=== PATIENT | female | born 1960 | race African-American/Black ===

== ENCOUNTER 2020-01-01 09:14 | Inpatient (IN) | payer OTHER ==
[~2020-01-01] VITALS: Ht 165.1 cm; Wt 103.9 kg
[2020-01-01] MEDS ORDERED: diphenhdrAMINE HCL 50 MG/1 ML VL ONE (09:25)
[2020-01-01] MEDS ORDERED: LORazepam 2MG/ML-1ML VIAL ONE (09:25)
[2020-01-01] MEDS ORDERED: SODIUM CHLORIDE 0.9% 1,000 ML IV ONE ×2 (09:25)
[2020-01-01] MEDS ORDERED: LORazepam 2MG/ML-1ML VIAL IV ONE ×2 (09:30→11:00)
[2020-01-01] MEDS ORDERED: diphenhdrAMINE HCL 50 MG/1 ML VL IV ONE (09:30)
[2020-01-01 10:10] LABS: Basophils # (auto) 0.1 10 ^3/uL (0-0.2); Basophils % (auto) 0.4 % (0.0-2.0); Eosinophils # (auto) 0.1 10 ^3/uL (0-0.8); Eosinophils % (auto) 1.1 % (0.0-7.0); Hematocrit 40.6 % (36.0-46.0); Lymphocytes # (auto) 3.8 10 ^3/uL (0.4-5.4); Lymphocytes % (auto) 29.3 % (10.0-50.0); Mean Corpuscular Hemoglobin 27.1 pg (28.0-32.0); Mean Corpuscular Volume 84.9 fL (80.0-100.0); Monocytes # (auto) 0.9 10 ^3/uL (0-1.3); Monocytes % (auto) 7.1 % (0.0-12.0); Neutrophils # (auto) 8.1 10 ^3/uL (1.6-8.6); Neutrophils % (auto) 62.1 % (37.0-80.0); Nucleated Red Blood Cells % 0.2 %; Platelet Count (auto) 305 10^3/uL (140-450); Red Blood Cells 4.78 10^6/uL (4.0-5.20); Red Cell Distribution Width 13.8 % (11.8-14.3)
[2020-01-01 10:40] LABS: Chloride 105 mmol/L (98-107); Potassium 3.4 mmol/L (3.5-5.1); Sodium 137 mmol/L (136-145)
[2020-01-01 10:50] LABS: Alanine Aminotransferase 33 U/L (13-56); Albumin 3.8 g/dL (3.4-5.0); Alkaline Phosphatase 96 U/L (45-117); Anion Gap 11 (5-15); Aspartate Aminotransferase 17 U/L (15-37); BUN/Creatinine Ratio 11.1; Bilirubin, Total 0.7 mg/dL (0.2-1.0); Blood Urea Nitrogen 12 mg/dL (7-18); Calcium 8.4 mg/dL (8.5-10.1); Carbon Dioxide 21 mmol/L (21-32); GFR African American 67 mL/min; GFR Non-African American 56 mL/min; Glucose 320 mg/dL (74-106); Total Protein 7.2 g/dL (6.4-8.2)
[2020-01-01 11:08] LABS: Urine Bacteria FEW /hpf (None Seen); Urine Blood 1+ /uL (Negative); Urine Specific Gravity 1.016 (1.001-1.035); Urine WBC 27 /hpf (0 - 5)
[2020-01-01] MEDS ORDERED: POTASSIUM CHL 20MEQ/100ML 100 ML IV ONE (12:45)
[2020-01-01] MEDS ORDERED: POTASSIUM EFFERVESENT TAB 25 MEQ PO ONE (13:15)
[2020-01-01] MEDS ORDERED: MORPHINE SULF INJ 2 MG/ML SYRINGE 1ML IV PRN ×2 (13:15)
[2020-01-01] MEDS ORDERED: LORazepam 2MG/ML-1ML VIAL IV PRN ×2 (13:15→21:15)
[2020-01-01] MEDS ORDERED: traMADol HCL 50 MG TAB PO PRN (13:15)
[2020-01-01] MEDS ORDERED: DEXTROSE (50%) 50ML SYRG IV PRN (13:15)
[2020-01-01] MEDS ORDERED: LACTULOSE 20Gm/30ML SOLN PO PRN (13:15)
[2020-01-01] MEDS ORDERED: TEMAZEPAM 15 MG CAP PO PRN (13:15)
[2020-01-01] MEDS ORDERED: PROMETHAZINE HCL 25 MG/ML 1ML IV PRN (13:15)
[2020-01-01] MEDS ORDERED: cefTRIAXone 1GM/50ML D5W 50 ML IV ONE (13:15)
[2020-01-01] MEDS ORDERED: ACETAMINOPHEN 500 MG TAB PO PRN (13:15)
[2020-01-01] MEDS ORDERED: LABETALOL HCL 5 MG/ML ML 20ML VIAL IV PRN (13:15)
[2020-01-01] MEDS ORDERED: NITROGLYCERIN 0.4 MG SL TAB SL PRN (13:15)
[2020-01-01 14:43] LABS: Alcohol, Urine < 3.0 mg/dL (0-10); Amphetamine Screen, Urine NEGATIVE (NEGATIVE); Barbiturate Scree,Urine NEGATIVE (NEGATIVE); Benzodiazephine Screen, Urine POSITIVE (NEGATIVE); Cannabinoid Screen, Urine NEGATIVE (NEGATIVE); Cocaine Screen, Urine NEGATIVE (NEGATIVE); Opiate Scree,Urine NEGATIVE (NEGATIVE); Phencyclidine Screen, Urine NEGATIVE (NEGATIVE)
[2020-01-01] MEDS: ACCU-CHEK COMFORT CURVE STRIP VI SCH ×2 (16:00→22:11)
[2020-01-01 17:00] VITALS: BP 149/97
[2020-01-01] MEDS: InsuLIN REG 1unit/0.01ml Soln (100units/ml) SC SCH ×2 (18:02→22:11)
[2020-01-01] MEDS ORDERED: HYDROcodone-ACET 5/325MG TAB PO PRN (21:15)
[2020-01-01 22:00] VITALS: BP 148/83
[2020-01-01] MEDS: ATORVASTATIN 20 MG TAB PO SCH (22:12)
[2020-01-01] MEDS: CARVEDILOL 3.125 MG TAB PO SCH (22:12)
[2020-01-01] MEDS: FAMOTIDINE 20 MG TAB PO SCH (22:12)
[2020-01-02] MEDS: InsuLIN REG 1unit/0.01ml Soln (100units/ml) SC SCH ×6 (00:01→22:36)
[2020-01-02] MEDS: ACCU-CHEK COMFORT CURVE STRIP VI SCH ×6 (00:02→21:46)
[2020-01-02] MEDS ORDERED: LISI-646 PO (03:43)
[2020-01-02] MEDS ORDERED: METF-371 PO (03:43)
[2020-01-02] MEDS ORDERED: ATOR20TA50 PO (03:47)
[2020-01-02] MEDS ORDERED: PIOG1TAB37 OR (03:51)
[2020-01-02] MEDS ORDERED: CETI10CA PO (03:52)
[2020-01-02 05:20] VITALS: BP 144/85
[2020-01-02 08:00] VITALS: BP 129/77
[2020-01-02 09:00] VITALS: BP 129/77
[2020-01-02] MEDS: POTASSIUM CHL 20 Meq TABLET PO SCH (10:07)
[2020-01-02] MEDS: ENOXAPARIN SOD 40 MG/0.4 ML SYRINGE SC SCH (10:07)
[2020-01-02] MEDS: FAMOTIDINE 20 MG TAB PO SCH ×2 (10:07→22:35)
[2020-01-02] MEDS: FUROSEMIDE 40 MG/4 ML VIAL IV SCH (10:07)
[2020-01-02] MEDS: cefTRIAXone 1GM/50ML D5W 50 ML IV SCH (10:08)
[2020-01-02] MEDS: CARVEDILOL 3.125 MG TAB PO SCH ×2 (10:08→22:35)
[2020-01-02] MEDS: ENALAPRIL MALEATE 2.5 MG TAB PO SCH (10:08)
[2020-01-02] MEDS: ASPirin 81 mg TAB PO SCH (10:08)
[2020-01-02 13:00] VITALS: BP 130/83
[2020-01-02 16:52] VITALS: BP 121/81
[2020-01-02 22:00] VITALS: BP 142/80
[2020-01-02] MEDS: ATORVASTATIN 20 MG TAB PO SCH (22:35)
[2020-01-03] MEDS: InsuLIN REG 1unit/0.01ml Soln (100units/ml) SC SCH ×7 (01:01→23:58)
[2020-01-03] MEDS: ACCU-CHEK COMFORT CURVE STRIP VI SCH ×7 (01:02→23:58)
[2020-01-03 05:00] VITALS: BP 130/72
[2020-01-03 08:48] VITALS: BP 125/72
[2020-01-03] MEDS: FUROSEMIDE 40 MG/4 ML VIAL IV SCH (10:00)
[2020-01-03] MEDS: cefTRIAXone 1GM/50ML D5W 50 ML IV SCH (10:13)
[2020-01-03] MEDS: ASPirin 81 mg TAB PO SCH (10:14)
[2020-01-03] MEDS: CARVEDILOL 3.125 MG TAB PO SCH ×2 (10:14→21:38)
[2020-01-03] MEDS: FAMOTIDINE 20 MG TAB PO SCH ×2 (10:15→21:37)
[2020-01-03] MEDS: ENALAPRIL MALEATE 2.5 MG TAB PO SCH (10:15)
[2020-01-03] MEDS: ENOXAPARIN SOD 40 MG/0.4 ML SYRINGE SC SCH (10:15)
[2020-01-03] MEDS: POTASSIUM CHL 20 Meq TABLET PO SCH (10:16)
[2020-01-03 12:49] VITALS: BP 148/85
[2020-01-03 16:47] VITALS: BP 131/73
[2020-01-03] MEDS: ATORVASTATIN 20 MG TAB PO SCH (21:38)
[2020-01-03 23:32] VITALS: BP 141/84
[2020-01-04] MEDS: ACCU-CHEK COMFORT CURVE STRIP VI SCH ×5 (04:00→20:00)
[2020-01-04] MEDS: InsuLIN REG 1unit/0.01ml Soln (100units/ml) SC SCH ×6 (04:00→23:58)
[2020-01-04 05:36] VITALS: BP 131/75
[2020-01-04 08:43] VITALS: BP 148/88
[2020-01-04] MEDS: cefTRIAXone 1GM/50ML D5W 50 ML IV SCH (09:16)
[2020-01-04] MEDS: FUROSEMIDE 40 MG/4 ML VIAL IV SCH (09:17)
[2020-01-04] MEDS: ASPirin 81 mg TAB PO SCH (09:17)
[2020-01-04] MEDS: CARVEDILOL 3.125 MG TAB PO SCH ×2 (09:17→22:07)
[2020-01-04] MEDS: FAMOTIDINE 20 MG TAB PO SCH ×2 (09:18→22:06)
[2020-01-04] MEDS: POTASSIUM CHL 20 Meq TABLET PO SCH (09:18)
[2020-01-04] MEDS: ENALAPRIL MALEATE 2.5 MG TAB PO SCH (09:19)
[2020-01-04] MEDS: ENOXAPARIN SOD 40 MG/0.4 ML SYRINGE SC SCH (09:19)
[2020-01-04 12:51] VITALS: BP 129/87
[2020-01-04 16:34] VITALS: BP 151/98
[2020-01-04 22:00] VITALS: BP 144/83
[2020-01-04] MEDS: ATORVASTATIN 20 MG TAB PO SCH (22:07)
[2020-01-05] MEDS: ACCU-CHEK COMFORT CURVE STRIP VI SCH ×5 (04:00→16:00)
[2020-01-05] MEDS: InsuLIN REG 1unit/0.01ml Soln (100units/ml) SC SCH ×4 (04:00→16:00)
[2020-01-05 05:00] VITALS: BP 129/77
[2020-01-05] MEDS: cefTRIAXone 1GM/50ML D5W 50 ML IV SCH (08:55)
[2020-01-05] MEDS: FUROSEMIDE 40 MG/4 ML VIAL IV SCH (08:55)
[2020-01-05] MEDS: CARVEDILOL 3.125 MG TAB PO SCH (08:56)
[2020-01-05] MEDS: POTASSIUM CHL 20 Meq TABLET PO SCH (08:56)
[2020-01-05] MEDS: ASPirin 81 mg TAB PO SCH (08:56)
[2020-01-05] MEDS: ENALAPRIL MALEATE 2.5 MG TAB PO SCH (08:56)
[2020-01-05] MEDS: ENOXAPARIN SOD 40 MG/0.4 ML SYRINGE SC SCH (08:57)
[2020-01-05] MEDS: FAMOTIDINE 20 MG TAB PO SCH (08:57)
[2020-01-05 09:00] VITALS: BP 132/75
[2020-01-05 13:00] VITALS: BP 124/81
== END 2020-01-05 16:57 | disposition home or self-care (01) | DRG 872 ==
LOC: ER 09:14 → EDBD 09:14 → TELE-WESTW 09:15 → ER 15:23
PROVIDERS: ADMIT Internal Medicine; ATTEND Family Medicine
DX: A41.9 Sepsis, unspecified organism (principal); N39.0 Urinary tract infection, site not specified; J90 Pleural effusion, not elsewhere classified; G40.401 Other generalized epilepsy and epileptic syndromes, not intractable, with status epilepticus; E87.6 Hypokalemia; E86.0 Dehydration; E66.01 Morbid (severe) obesity due to excess calories; E11.65 Type 2 diabetes mellitus with hyperglycemia; I11.0 Hypertensive heart disease with heart failure; I50.9 Heart failure, unspecified; Z68.38 Body mass index [BMI] 38.0-38.9, adult; E78.00 Pure hypercholesterolemia, unspecified; E78.5 Hyperlipidemia, unspecified; R79.89 Other specified abnormal findings of blood chemistry; Z82.49 Family history of ischemic heart disease and other diseases of the circulatory system; Z83.3 Family history of diabetes mellitus; Z88.0 Allergy status to penicillin; J34.1 Cyst and mucocele of nose and nasal sinus
CPT/HCPCS: 36415; 70450; 70551; 71045; 80053; 80307; 81001; 82550; 82962; 83036; 83880; 84484; 85025; 85379; 87040; 87086; 93005; 93306; 93886; 93970; 95819; G0378; J0696; J1815; J3480; J7060

== ENCOUNTER 2020-11-15 06:19 | Day surgery (SDC) | payer OTHER ==
[2020-11-10 14:36] LABS: Basophils # (auto) 0 10 ^3/uL (0-0.2); Basophils % (auto) 0.3 % (0.0-2.0); Eosinophils # (auto) 0.1 10 ^3/uL (0-0.8); Eosinophils % (auto) 1.7 % (0.0-7.0); Hematocrit 37.5 % (36.0-46.0); Hemoglobin 12.6 g/dL (12.2-16.2); Lymphocytes # (auto) 1.8 10 ^3/uL (0.4-5.4); Mean Corpuscular Hemoglobin 28.2 pg (28.0-32.0); Mean Corpuscular Hgb Conc. 33.6 g/dL (32.0-36.0); Mean Corpuscular Volume 83.9 fL (80.0-100.0); Monocytes # (auto) 0.5 10 ^3/uL (0-1.3); Monocytes % (auto) 7.9 % (0.0-12.0); Neutrophils % (auto) 62.1 % (37.0-80.0); Nucleated Red Blood Cells % 0.1 %; Red Blood Cells 4.47 10^6/uL (4.0-5.20); Red Cell Distribution Width 13.9 % (11.8-14.3); White Blood Cell 6.4 10^3/uL (4.4-10.8)
[2020-11-10 14:39] LABS: Albumin 3.5 g/dL (3.4-5.0); Calcium 8.9 mg/dL (8.5-10.1); Potassium 3.8 mmol/L (3.5-5.1)
[2020-11-10 14:42] LABS: BUN/Creatinine Ratio 21.8; Bilirubin, Total 0.7 mg/dL (0.2-1.0); Total Protein 7.3 g/dL (6.4-8.2)
[2020-11-10 14:49] LABS: Urine Bacteria NONE SEEN /hpf (None Seen); Urine Blood 2+ /uL (Negative); Urine Budding Yeast OCCASIONAL /hpf (None Seen); Urine Mucus FEW (None Seen); Urine Specific Gravity 1.022 (1.001-1.035); Urine WBC 211 /hpf (0 - 5)
[~2020-11-15] VITALS: Ht 170.2 cm; Wt 86.2 kg
[~2020-11-15 06:19] MED LIST: ATOR20TA50 PO; CETI10CA PO; LISI20TA28 PO; METF-371 PO; MONT5CHW23 PO; SITA50TA PO
[2020-11-15] MEDS ORDERED: CLINDAMYCIN 600MG IV 50 ML IV ONE (07:00)
[2020-11-15] MEDS ORDERED: ROPIVACAINE 0.5% (5MG/ML) 20ML AMPULE IJ ONE (07:12)
[2020-11-15] MEDS ORDERED: fentaNYL CITRATE 100 MCG/2 ML VL ONE ×2 (07:26→07:28)
[2020-11-15] MEDS ORDERED: MIDAZOLAM HCL 2MG/2ML 2ml VIAL (1mg/ml) ONE (07:27)
[2020-11-15] MEDS ORDERED: PROPOFOL 10 MG/ML 20 ML IV ONE (07:29)
[2020-11-15] MEDS ORDERED: ONDANSETRON HCL 4 MG/2 ML VIAL ONE (07:29)
[2020-11-15] MEDS ORDERED: LIDOCAINE 2% (LOCAL ANESTH.) PF 5ml SDV ONE (07:29)
[2020-11-15] MEDS ORDERED: NEOMYCIN-BACITRACIN-POLYM 15GM TOP OINT TOP ONE (07:49)
[2020-11-15] MEDS ORDERED: ONDANSETRON HCL 4 MG/2 ML VIAL IV PRN (08:15)
[2020-11-15] MEDS ORDERED: HYDROmorphone HCL 2 MG/ML VL ONE (08:53)
[2020-11-15] MEDS: HYDROmorphone HCL 2 MG/ML VL IV PRN ×2 (08:54→09:10)
[2020-11-15 09:05] VITALS: BP 144/90
== END 2020-11-15 09:35 | disposition home or self-care (01) ==
LOC: SUR 06:19
PROVIDERS: ATTEND Podiatrist Foot & Ankle Surgery
DX: M72.2 Plantar fascial fibromatosis (principal); I10 Essential (primary) hypertension; E11.9 Type 2 diabetes mellitus without complications; Z98.51 Tubal ligation status; Z20.822 Contact with and (suspected) exposure to COVID-19; Z98.890 Other specified postprocedural states; Z79.899 Other long term (current) drug therapy
CPT/HCPCS: 28062; 36415; 80053; 81001; 82962; 85025; J1170; J2001; J2250; J2405; J2704; J2795; J3010; J3490; U0003

== ENCOUNTER 2020-11-22 08:21 | Emergency (ER) | payer OTHER ==
[~2020-11-22] VITALS: Ht 165.1 cm; Wt 77.1 kg
[2020-11-22] MEDS ORDERED: LORazepam 2MG/ML-1ML VIAL ONE (08:50)
[2020-11-22] MEDS ORDERED: LORazepam 2MG/ML-1ML VIAL IV ONE (09:00)
[2020-11-22 09:40] LABS: Basophils # (auto) 0.1 10 ^3/uL (0-0.2); Basophils % (auto) 0.9 % (0.0-2.0); Eosinophils # (auto) 0 10 ^3/uL (0-0.8); Eosinophils % (auto) 0.2 % (0.0-7.0); Hematocrit 40.9 % (36.0-46.0); Hemoglobin 13.1 g/dL (12.2-16.2); Lymphocytes # (auto) 1.5 10 ^3/uL (0.4-5.4); Lymphocytes % (auto) 11.9 % (10.0-50.0); Mean Corpuscular Hemoglobin 27.3 pg (28.0-32.0); Mean Corpuscular Volume 85.5 fL (80.0-100.0); Monocytes # (auto) 0.5 10 ^3/uL (0-1.3); Monocytes % (auto) 3.8 % (0.0-12.0); Neutrophils # (auto) 10.7 10 ^3/uL (1.6-8.6); Neutrophils % (auto) 83.2 % (37.0-80.0); Nucleated Red Blood Cells % 0.1 %; Red Blood Cells 4.79 10^6/uL (4.0-5.20); Red Cell Distribution Width 13.5 % (11.8-14.3); White Blood Cell 12.8 10^3/uL (4.4-10.8)
[2020-11-22 09:57] LABS: Albumin 3.5 g/dL (3.4-5.0); Anion Gap 14 (5-15); Blood Urea Nitrogen 10 mg/dL (7-18); Calcium 8.4 mg/dL (8.5-10.1); Carbon Dioxide 17 mmol/L (21-32); Chloride 108 mmol/L (98-107); Glucose 269 mg/dL (74-106); Magnesium 1.9 mg/dL (1.6-2.6); Potassium 3.4 mmol/L (3.5-5.1); Sodium 139 mmol/L (136-145)
[2020-11-22 10:04] LABS: Alanine Aminotransferase 35 U/L (13-56); Alkaline Phosphatase 74 U/L (45-117); Aspartate Aminotransferase 18 U/L (15-37); BUN/Creatinine Ratio 8.4; Bilirubin, Total 0.8 mg/dL (0.2-1.0); GFR African American 60 mL/min; GFR Non-African American 50 mL/min; Total Protein 7.2 g/dL (6.4-8.2)
[2020-11-22 10:37] LABS: Urine Bacteria FEW /hpf (None Seen); Urine Blood 1+ /uL (Negative); Urine Hyaline Cast FEW /lpf (0 - 2); Urine Specific Gravity 1.012 (1.001-1.035); Urine WBC 108 /hpf (0 - 5); Urine WBC Clumps PRESENT /hpf (None Seen)
[2020-11-22 10:56] LABS: Amphetamine Screen, Urine NEGATIVE (NEGATIVE); Barbiturate Scree,Urine NEGATIVE (NEGATIVE); Benzodiazephine Screen, Urine POSITIVE (NEGATIVE); Cannabinoid Screen, Urine NEGATIVE (NEGATIVE); Cocaine Screen, Urine NEGATIVE (NEGATIVE); Opiate Scree,Urine NEGATIVE (NEGATIVE); Phencyclidine Screen, Urine NEGATIVE (NEGATIVE)
[2020-11-22] MEDS ORDERED: IOHEXOL 350 MG/ML 100ML IJ ONE ×2 (12:22→13:46)
[2020-11-22] MEDS ORDERED: metFORMIN HYDROCHLORIDE 500 MG TAB PO ONE (12:30)
[2020-11-22 15:57] VITALS: BP 154/86
== END 2020-11-22 16:42 | disposition home or self-care (01) ==
LOC: EDBD 08:21 → ER 08:21
DX: G40.909 Epilepsy, unspecified, not intractable, without status epilepticus (principal); E11.65 Type 2 diabetes mellitus with hyperglycemia; N39.0 Urinary tract infection, site not specified; J32.9 Chronic sinusitis, unspecified; E87.6 Hypokalemia; J45.909 Unspecified asthma, uncomplicated; E11.621 Type 2 diabetes mellitus with foot ulcer; L97.429 Non-pressure chronic ulcer of left heel and midfoot with unspecified severity; E11.9 Type 2 diabetes mellitus without complications; I10 Essential (primary) hypertension; E78.5 Hyperlipidemia, unspecified; Z20.822 Contact with and (suspected) exposure to COVID-19
CPT/HCPCS: 36415; 70450; 71045; 71275; 80053; 80307; 81001; 83735; 84484; 85025; 87426; 93005; 96365; 96366; 96375; 99285; J1953; J2060; J7060; Q9967

== ENCOUNTER 2021-10-16 19:20 | Inpatient (IN) | payer OTHER ==
[~2021-10-16] VITALS: Ht 170.2 cm; Wt 84.4 kg
[2021-10-16 20:48] LABS: Hematocrit 40.7 % (36.0-46.0); Hemoglobin 12.5 g/dL (12.2-16.2); Mean Corpuscular Hemoglobin 26.1 pg (28.0-32.0); Mean Corpuscular Hgb Conc. 30.7 g/dL (32.0-36.0); Mean Corpuscular Volume 84.8 fL (80.0-100.0); Red Cell Distribution Width 13.3 % (11.8-14.3); White Blood Cell 26.3 10^3/uL (4.4-10.8)
[2021-10-16 20:56] LABS: Basophils % (manual) 0 (0.0-2.0); Blast Cells 0; Eosinophils % (manual) 0 (0-7); Metamyelocytes % 0; Myelocytes % 0; Promyelocytes % 0; Reactive Lymphocytes 0
[2021-10-16 21:04] LABS: Albumin 3.9 g/dL (3.4-5.0); Calcium 9.3 mg/dL (8.5-10.1); Potassium 3.4 mmol/L (3.5-5.1)
[2021-10-16 21:08] LABS: BUN/Creatinine Ratio 10.9; Bilirubin, Total 1.6 mg/dL (0.2-1.0); Total Protein 7.7 g/dL (6.4-8.2)
[2021-10-16] MEDS ORDERED: SODIUM CHLORIDE 0.9% 1,000 ML IV ONE ×2 (21:15→23:00)
[2021-10-16] MEDS ORDERED: ONDANSETRON HCL 4 MG/2 ML VIAL IV ONE (21:15)
[2021-10-16] MEDS ORDERED: hydrALAZINE HCL 20 MG/ML VL IV ONE (21:15)
[2021-10-16 22:02] LABS: Band Neutrophils % (manual) 10; Lymphocytes % (manual) 3 (10.0-50.0); Monocytes % (manual) 6 (0-12)
[2021-10-16] MEDS ORDERED: LABETALOL INJECTION 250 MG in SODIUM CHL 0.9% 200 ML IV ONE (22:15)
[2021-10-16 22:39] LABS: Urine Bacteria NONE SEEN /hpf (None Seen); Urine Blood 2+ /uL (Negative); Urine WBC 127 /hpf (0 - 5)
[2021-10-16 22:48] LABS: Amphetamine Screen, Urine NEGATIVE (NEGATIVE); Barbiturate Scree,Urine NEGATIVE (NEGATIVE); Benzodiazephine Screen, Urine NEGATIVE (NEGATIVE); Cannabinoid Screen, Urine NEGATIVE (NEGATIVE); Cocaine Screen, Urine NEGATIVE (NEGATIVE); Opiate Scree,Urine NEGATIVE (NEGATIVE); Phencyclidine Screen, Urine NEGATIVE (NEGATIVE)
[2021-10-16] MEDS ORDERED: LABETALOL HCL 5 MG/ML 4ML SYRINGE IV ONE ×3 (22:52→23:06)
[2021-10-16] MEDS ORDERED: LABETALOL HCL 5 MG/ML ML 20ML VIAL IV ONE (23:04)
[2021-10-16] MEDS ORDERED: PIPERACILLIN-TAZOB 3.375GM 100 ML IV ONE (23:15)
[2021-10-16] MEDS ORDERED: VANCOMYCIN 1GM/250ML 250 ML IV ONE (23:15)
[2021-10-16] MEDS ORDERED: IOHEXOL 350 MG/ML 100ML IJ ONE (23:20)
[2021-10-17] MEDS ORDERED: InsuLIN REG 1unit/0.01ml Soln (100units/ml) SC ONE (04:30)
[2021-10-17 07:30] LABS: Albumin 3.4 g/dL (3.4-5.0); Calcium 8.2 mg/dL (8.5-10.1); Potassium 3.6 mmol/L (3.5-5.1)
[2021-10-17 07:33] LABS: INR 1.21 (0.9-1.15); Partial Thromboplastin Time 28.9 sec (23.6-33.0)
[2021-10-17 07:34] LABS: BUN/Creatinine Ratio 8.7; Total Protein 7.1 g/dL (6.4-8.2)
[2021-10-17 07:36] LABS: Basophils # (auto) 0 10 ^3/uL (0-0.2); Basophils % (auto) 0.1 % (0.0-2.0); Eosinophils # (auto) 0 10 ^3/uL (0-0.8); Hematocrit 36.9 % (36.0-46.0); Hemoglobin 11.9 g/dL (12.2-16.2); Lymphocytes # (auto) 0.6 10 ^3/uL (0.4-5.4); Lymphocytes % (auto) 2.3 % (10.0-50.0); Mean Corpuscular Hemoglobin 26.9 pg (28.0-32.0); Mean Corpuscular Hgb Conc. 32.2 g/dL (32.0-36.0); Mean Corpuscular Volume 83.5 fL (80.0-100.0); Monocytes # (auto) 1.4 10 ^3/uL (0-1.3); Monocytes % (auto) 5.7 % (0.0-12.0); Neutrophils # (auto) 21.8 10 ^3/uL (1.6-8.6); Neutrophils % (auto) 91.9 % (37.0-80.0); Red Blood Cells 4.42 10^6/uL (4.0-5.20); Red Cell Distribution Width 13.3 % (11.8-14.3); White Blood Cell 23.7 10^3/uL (4.4-10.8)
[2021-10-17 08:10] LABS: Lactic Acid w/Reflex 4.7 mmol/L (0.4-2.0)
[2021-10-17] MEDS ORDERED: LORazepam 2MG/ML-1ML VIAL IV ONE (08:15)
[2021-10-17] MEDS ORDERED: ACETAMINOPHEN 650 MG RECT SUPP PR ONE (10:30)
[2021-10-17] MEDS ORDERED: DOCUSATE SOD 100 MG CAP PO PRN (10:45)
[2021-10-17] MEDS ORDERED: ONDANSETRON HCL 4 MG/2 ML VIAL IV PRN (10:45)
[2021-10-17] MEDS: SODIUM CHLORIDE 0.9% 1,000 ML IV SCH ×2 (10:53→23:02)
[2021-10-17] MEDS ORDERED: DEXTROSE (50%) 50ML SYRG IV PRN (11:00)
[2021-10-17] MEDS ORDERED: LORazepam 2MG/ML-1ML VIAL ONE (12:04)
[2021-10-17] MEDS ORDERED: LORazepam 2MG/ML-1ML VIAL IV PRN ×2 (12:15→21:45)
[2021-10-17] MEDS: ACCU-CHEK COMFORT CURVE STRIP VI SCH ×2 (12:57→18:34)
[2021-10-17] MEDS: InsuLIN REG 1unit/0.01ml Soln (100units/ml) SC SCH ×2 (14:29→18:35)
[2021-10-17] MEDS ORDERED: VANCOMYCIN PER PHARMACY 0 MG IV SCH (17:00)
[2021-10-17] MEDS ORDERED: VANCOMYCIN 1GM/250ML 250 ML IV ONE (17:15)
[2021-10-17] MEDS ORDERED: ACETAMINOPHEN IV 1000 MG/100ML (10MG/ML) IV ONE (19:00)
[2021-10-17 23:58] VITALS: BP 116/75
[2021-10-18] MEDS: InsuLIN REG 1unit/0.01ml Soln (100units/ml) SC SCH ×5 (01:02→23:37)
[2021-10-18 04:00] VITALS: BP 133/78
[2021-10-18] MEDS: ACCU-CHEK COMFORT CURVE STRIP VI SCH ×5 (06:00→23:37)
[2021-10-18 06:02] LABS: Basophils # (auto) 0 10 ^3/uL (0-0.2); Basophils % (auto) 0.2 % (0.0-2.0); Eosinophils # (auto) 0 10 ^3/uL (0-0.8); Hematocrit 35.2 % (36.0-46.0); Hemoglobin 11.3 g/dL (12.2-16.2); Lymphocytes # (auto) 0.8 10 ^3/uL (0.4-5.4); Lymphocytes % (auto) 4.7 % (10.0-50.0); Mean Corpuscular Hemoglobin 26.8 pg (28.0-32.0); Mean Corpuscular Hgb Conc. 32.2 g/dL (32.0-36.0); Mean Corpuscular Volume 83.3 fL (80.0-100.0); Monocytes # (auto) 1.2 10 ^3/uL (0-1.3); Monocytes % (auto) 7.2 % (0.0-12.0); Neutrophils # (auto) 14.8 10 ^3/uL (1.6-8.6); Neutrophils % (auto) 87.9 % (37.0-80.0); Red Blood Cells 4.23 10^6/uL (4.0-5.20); Red Cell Distribution Width 13.6 % (11.8-14.3); White Blood Cell 16.9 10^3/uL (4.4-10.8)
[2021-10-18 06:21] LABS: Calcium 8.5 mg/dL (8.5-10.1); Potassium 3.1 mmol/L (3.5-5.1)
[2021-10-18 06:25] LABS: BUN/Creatinine Ratio 14.1
[2021-10-18 06:28] LABS: Bilirubin, Total 1.5 mg/dL (0.2-1.0); Total Protein 6.6 g/dL (6.4-8.2)
[2021-10-18 08:00] VITALS: BP 140/74
[2021-10-18 09:00] VITALS: BP 161/96
[2021-10-18 12:54] VITALS: BP 158/95
[2021-10-18] MEDS: VANCOMYCIN 1GM/250ML 250 ML IV SCH (13:51)
[2021-10-18] MEDS ORDERED: POTASSIUM CHLORIDE 40 MEQ, LIDOCAINE 1% (LOCAL ANESTH.) 4 ML in SODIUM CHL 0.9% 250 ML IV ONE (14:00)
[2021-10-18] MEDS ORDERED: CEFTRIAXONE SODIUM 2 GM in D5W 5% 50 ML IV ONE (14:00)
[2021-10-18] MEDS ORDERED: DEXTROSE (50%) 50ML SYRG IV PRN (14:00)
[2021-10-18 16:21] VITALS: BP 166/98
[2021-10-18] MEDS: SODIUM CHLORIDE 0.9% 1,000 ML IV SCH ×3 (17:46→21:47)
[2021-10-18 22:00] VITALS: BP 160/92
[2021-10-19 05:00] VITALS: BP 168/96
[2021-10-19 05:29] LABS: Basophils # (auto) 0 10 ^3/uL (0-0.2); Basophils % (auto) 0.2 % (0.0-2.0); Eosinophils # (auto) 0 10 ^3/uL (0-0.8); Hematocrit 33.7 % (36.0-46.0); Hemoglobin 10.9 g/dL (12.2-16.2); Lymphocytes % (auto) 7.4 % (10.0-50.0); Mean Corpuscular Hgb Conc. 32.5 g/dL (32.0-36.0); Mean Corpuscular Volume 83.2 fL (80.0-100.0); Monocytes # (auto) 0.9 10 ^3/uL (0-1.3); Monocytes % (auto) 6.6 % (0.0-12.0); Neutrophils # (auto) 12.1 10 ^3/uL (1.6-8.6); Neutrophils % (auto) 85.8 % (37.0-80.0); Red Blood Cells 4.05 10^6/uL (4.0-5.20); Red Cell Distribution Width 13.2 % (11.8-14.3); White Blood Cell 14.1 10^3/uL (4.4-10.8)
[2021-10-19 05:36] LABS: BUN/Creatinine Ratio 16.1; Calcium 8.3 mg/dL (8.5-10.1); Potassium 3.4 mmol/L (3.5-5.1)
[2021-10-19] MEDS: ACCU-CHEK COMFORT CURVE STRIP VI SCH ×3 (05:44→17:13)
[2021-10-19] MEDS: InsuLIN REG 1unit/0.01ml Soln (100units/ml) SC SCH ×3 (05:51→17:41)
[2021-10-19] MEDS: VANCOMYCIN 1GM/250ML 250 ML IV SCH ×2 (06:00→18:00)
[2021-10-19 08:47] VITALS: BP 165/94
[2021-10-19] MEDS: CEFTRIAXONE SODIUM 2 GM in D5W 5% 50 ML IV SCH (10:30)
[2021-10-19 13:08] VITALS: BP 164/93
[2021-10-19] MEDS ORDERED: POTASSIUM CHL 20 Meq TABLET PO ONE (15:45)
[2021-10-19] MEDS ORDERED: LISINOPRIL 20 MG TAB PO ONE (15:45)
[2021-10-19] MEDS: SODIUM CHLORIDE 0.9% 1,000 ML IV SCH (15:57)
[2021-10-19 16:47] VITALS: BP 159/99
[2021-10-19 21:55] VITALS: BP 141/82
[2021-10-20] MEDS: InsuLIN REG 1unit/0.01ml Soln (100units/ml) SC SCH ×4 (00:31→17:40)
[2021-10-20] MEDS: VANCOMYCIN 1GM/250ML 250 ML IV SCH ×2 (04:40→16:50)
[2021-10-20 05:00] VITALS: BP 139/79
[2021-10-20] MEDS: ACCU-CHEK COMFORT CURVE STRIP VI SCH ×4 (05:31→17:38)
[2021-10-20 05:38] LABS: Basophils # (auto) 0 10 ^3/uL (0-0.2); Basophils % (auto) 0.3 % (0.0-2.0); Eosinophils # (auto) 0 10 ^3/uL (0-0.8); Eosinophils % (auto) 0.3 % (0.0-7.0); Hemoglobin 10.7 g/dL (12.2-16.2); Lymphocytes # (auto) 1.3 10 ^3/uL (0.4-5.4); Mean Corpuscular Hemoglobin 26.6 pg (28.0-32.0); Monocytes # (auto) 0.9 10 ^3/uL (0-1.3); Monocytes % (auto) 8.8 % (0.0-12.0); Red Blood Cells 4.04 10^6/uL (4.0-5.20)
[2021-10-20 05:41] LABS: Hematocrit 33.2 % (36.0-46.0); Lymphocytes % (auto) 12.6 % (10.0-50.0); Mean Corpuscular Hgb Conc. 32.3 g/dL (32.0-36.0); Mean Corpuscular Volume 82.2 fL (80.0-100.0); Neutrophils # (auto) 8.1 10 ^3/uL (1.6-8.6); Red Cell Distribution Width 12.8 % (11.8-14.3); White Blood Cell 10.4 10^3/uL (4.4-10.8)
[2021-10-20 05:59] LABS: Potassium 3.4 mmol/L (3.5-5.1)
[2021-10-20 06:08] LABS: Albumin 2.7 g/dL (3.4-5.0); Calcium 8.2 mg/dL (8.5-10.1)
[2021-10-20 06:11] LABS: Total Protein 6.3 g/dL (6.4-8.2)
[2021-10-20] MEDS: ACETAMINOPHEN 500 MG TAB PO PRN ×2 (08:47→21:28)
[2021-10-20] MEDS: SODIUM CHLORIDE 0.9% 1,000 ML IV SCH (08:49)
[2021-10-20 09:00] VITALS: BP 151/89
[2021-10-20] MEDS: CEFTRIAXONE SODIUM 2 GM in D5W 5% 50 ML IV SCH (09:49)
[2021-10-20] MEDS: LISINOPRIL 20 MG TAB PO SCH (09:53)
[2021-10-20 13:00] VITALS: BP 148/88
[2021-10-20 17:00] VITALS: BP 118/85
[2021-10-20 22:15] VITALS: BP 147/76
[2021-10-21] MEDS: ACCU-CHEK COMFORT CURVE STRIP VI SCH ×4 (00:14→17:44)
[2021-10-21] MEDS: InsuLIN REG 1unit/0.01ml Soln (100units/ml) SC SCH ×4 (00:17→17:53)
[2021-10-21] MEDS: SODIUM CHLORIDE 0.9% 1,000 ML IV SCH ×2 (01:19→17:45)
[2021-10-21] MEDS: VANCOMYCIN 1GM/250ML 250 ML IV SCH ×3 (02:44→23:11)
[2021-10-21 05:02] VITALS: BP 154/85
[2021-10-21 09:00] VITALS: BP 141/91
[2021-10-21] MEDS: CEFTRIAXONE SODIUM 2 GM in D5W 5% 50 ML IV SCH (09:03)
[2021-10-21] MEDS: ACETAMINOPHEN 500 MG TAB PO PRN (09:03)
[2021-10-21] MEDS: LISINOPRIL 20 MG TAB PO SCH (09:24)
[2021-10-21 13:00] VITALS: BP 146/83
[2021-10-21 17:00] VITALS: BP 149/81
[2021-10-21 20:00] VITALS: BP 149/89
[2021-10-21 22:00] VITALS: BP 149/89
[2021-10-22] VITALS (7 sets, daily range): BP systolic 127–154; BP diastolic 77–97
[2021-10-22] MEDS: ACCU-CHEK COMFORT CURVE STRIP VI SCH ×4 (00:15→18:14)
[2021-10-22] MEDS: InsuLIN REG 1unit/0.01ml Soln (100units/ml) SC SCH ×4 (00:20→18:13)
[2021-10-22 08:26] LABS: Basophils # (auto) 0.1 10 ^3/uL (0-0.2); Eosinophils # (auto) 0.1 10 ^3/uL (0-0.8); Hematocrit 33.9 % (36.0-46.0); Hemoglobin 10.9 g/dL (12.2-16.2); Lymphocytes # (auto) 1.8 10 ^3/uL (0.4-5.4); Lymphocytes % (auto) 16.8 % (10.0-50.0)
[2021-10-22 08:28] LABS: Basophils % (auto) 0.8 % (0.0-2.0); Eosinophils % (auto) 1.3 % (0.0-7.0); Mean Corpuscular Hemoglobin 26.5 pg (28.0-32.0); Mean Corpuscular Hgb Conc. 32.2 g/dL (32.0-36.0); Mean Corpuscular Volume 82.3 fL (80.0-100.0); Neutrophils # (auto) 7.7 10 ^3/uL (1.6-8.6); Neutrophils % (auto) 72.1 % (37.0-80.0); Red Blood Cells 4.12 10^6/uL (4.0-5.20); Red Cell Distribution Width 13.1 % (11.8-14.3); White Blood Cell 10.7 10^3/uL (4.4-10.8)
[2021-10-22] MEDS: VANCOMYCIN 1GM/250ML 250 ML IV SCH (09:31)
[2021-10-22] MEDS: LISINOPRIL 20 MG TAB PO SCH (09:31)
[2021-10-22] MEDS: ACETAMINOPHEN 500 MG TAB PO PRN (09:41)
[2021-10-22] MEDS: CEFTRIAXONE SODIUM 2 GM in D5W 5% 50 ML IV SCH (10:38)
[2021-10-22] MEDS ORDERED: SULFAMETHOX W/TRIMETH(800/160MG) DS TAB PO ONE (12:00)
[2021-10-22] MEDS: metFORMIN HYDROCHLORIDE 850 MG TAB PO SCH (18:07)
[2021-10-22] MEDS: SULFAMETHOX W/TRIMETH(800/160MG) DS TAB PO SCH (21:56)
[2021-10-22] MEDS: levETIRAcetam 500 MG TAB PO SCH (21:56)
[2021-10-23] MEDS: ACCU-CHEK COMFORT CURVE STRIP VI SCH ×5 (00:13→23:01)
[2021-10-23] MEDS: InsuLIN REG 1unit/0.01ml Soln (100units/ml) SC SCH ×5 (00:18→23:04)
[2021-10-23 05:00] VITALS: BP 123/84
[2021-10-23] MEDS: ACETAMINOPHEN 500 MG TAB PO PRN ×2 (05:55→23:19)
[2021-10-23 06:37] LABS: Potassium 3.4 mmol/L (3.5-5.1)
[2021-10-23 06:41] LABS: BUN/Creatinine Ratio 18.1; Calcium 8.7 mg/dL (8.5-10.1)
[2021-10-23 06:54] LABS: Basophils # (auto) 0 10 ^3/uL (0-0.2); Basophils % (auto) 0.2 % (0.0-2.0); Eosinophils # (auto) 0.2 10 ^3/uL (0-0.8); Eosinophils % (auto) 1.8 % (0.0-7.0); Hematocrit 31.7 % (36.0-46.0); Hemoglobin 10.3 g/dL (12.2-16.2); Lymphocytes % (auto) 17.8 % (10.0-50.0); Mean Corpuscular Hemoglobin 26.7 pg (28.0-32.0); Mean Corpuscular Hgb Conc. 32.3 g/dL (32.0-36.0); Mean Corpuscular Volume 82.5 fL (80.0-100.0); Monocytes # (auto) 0.8 10 ^3/uL (0-1.3); Monocytes % (auto) 7.1 % (0.0-12.0); Neutrophils # (auto) 8.2 10 ^3/uL (1.6-8.6); Neutrophils % (auto) 73.1 % (37.0-80.0); Red Blood Cells 3.85 10^6/uL (4.0-5.20); Red Cell Distribution Width 13.2 % (11.8-14.3); White Blood Cell 11.2 10^3/uL (4.4-10.8)
[2021-10-23 09:00] VITALS: BP 129/81
[2021-10-23] MEDS: levETIRAcetam 500 MG TAB PO SCH ×2 (09:14→20:58)
[2021-10-23] MEDS: metFORMIN HYDROCHLORIDE 850 MG TAB PO SCH ×2 (09:14→17:39)
[2021-10-23] MEDS: SULFAMETHOX W/TRIMETH(800/160MG) DS TAB PO SCH ×2 (09:14→20:58)
[2021-10-23] MEDS: LISINOPRIL 20 MG TAB PO SCH (09:21)
[2021-10-23] MEDS ORDERED: POTASSIUM CHL 20 Meq TABLET PO ONE (12:30)
[2021-10-23 13:00] VITALS: BP 135/75
[2021-10-23 16:37] VITALS: BP 123/59
[2021-10-23 22:00] VITALS: BP 138/85
[2021-10-24 05:00] VITALS: BP 136/80
[2021-10-24] MEDS: ACCU-CHEK COMFORT CURVE STRIP VI SCH ×3 (05:05→17:50)
[2021-10-24] MEDS: InsuLIN REG 1unit/0.01ml Soln (100units/ml) SC SCH ×3 (05:06→16:14)
[2021-10-24] MEDS: ACETAMINOPHEN 500 MG TAB PO PRN ×3 (05:06→21:01)
[2021-10-24 07:09] LABS: BUN/Creatinine Ratio 20.8; Calcium 8.9 mg/dL (8.5-10.1); Potassium 3.5 mmol/L (3.5-5.1)
[2021-10-24 07:12] LABS: Basophils # (auto) 0 10 ^3/uL (0-0.2); Basophils % (auto) 0.3 % (0.0-2.0); Eosinophils # (auto) 0.2 10 ^3/uL (0-0.8); Eosinophils % (auto) 2.1 % (0.0-7.0); Hematocrit 32.4 % (36.0-46.0); Hemoglobin 10.7 g/dL (12.2-16.2); Lymphocytes # (auto) 1.7 10 ^3/uL (0.4-5.4); Lymphocytes % (auto) 19.4 % (10.0-50.0); Mean Corpuscular Hemoglobin 27.5 pg (28.0-32.0); Mean Corpuscular Volume 83.2 fL (80.0-100.0); Monocytes # (auto) 0.7 10 ^3/uL (0-1.3); Monocytes % (auto) 8.1 % (0.0-12.0); Neutrophils # (auto) 6.3 10 ^3/uL (1.6-8.6); Neutrophils % (auto) 70.1 % (37.0-80.0); Nucleated Red Blood Cells % 0.1 %; Red Blood Cells 3.89 10^6/uL (4.0-5.20); Red Cell Distribution Width 13.5 % (11.8-14.3)
[2021-10-24] MEDS: metFORMIN HYDROCHLORIDE 850 MG TAB PO SCH ×2 (08:51→17:44)
[2021-10-24] MEDS: SULFAMETHOX W/TRIMETH(800/160MG) DS TAB PO SCH ×2 (08:51→21:00)
[2021-10-24] MEDS: levETIRAcetam 500 MG TAB PO SCH ×2 (08:53→21:00)
[2021-10-24] MEDS: LISINOPRIL 20 MG TAB PO SCH (08:54)
[2021-10-24 08:59] VITALS: BP 137/76
[2021-10-24 13:00] VITALS: BP 147/89
[2021-10-24 17:23] VITALS: BP 141/80
[2021-10-24] MEDS: guaiFENesin-DM 100/10mg/5ml SYR PO PRN (17:45)
[2021-10-24 21:58] VITALS: BP 170/89
[2021-10-24 22:25] VITALS: BP 151/92
[2021-10-25] MEDS: InsuLIN REG 1unit/0.01ml Soln (100units/ml) SC SCH ×5 (00:10→23:47)
[2021-10-25] MEDS: ACCU-CHEK COMFORT CURVE STRIP VI SCH ×5 (00:10→23:39)
[2021-10-25 04:51] VITALS: BP 141/85
[2021-10-25] MEDS: ACETAMINOPHEN 500 MG TAB PO PRN ×2 (05:46→22:01)
[2021-10-25 09:00] VITALS: BP 140/86
[2021-10-25] MEDS: LISINOPRIL 20 MG TAB PO SCH (09:10)
[2021-10-25] MEDS: metFORMIN HYDROCHLORIDE 850 MG TAB PO SCH ×2 (09:10→18:21)
[2021-10-25] MEDS: SULFAMETHOX W/TRIMETH(800/160MG) DS TAB PO SCH ×2 (09:10→22:00)
[2021-10-25] MEDS: levETIRAcetam 500 MG TAB PO SCH ×2 (09:33→22:00)
[2021-10-25 13:00] VITALS: BP 143/95
[2021-10-25 17:00] VITALS: BP 168/88
[2021-10-25] MEDS: guaiFENesin-DM 100/10mg/5ml SYR PO PRN (20:13)
[2021-10-25 22:00] VITALS: BP 147/93
[2021-10-26 05:00] VITALS: BP 135/83
[2021-10-26] MEDS: InsuLIN REG 1unit/0.01ml Soln (100units/ml) SC SCH ×3 (05:30→17:30)
[2021-10-26] MEDS: ACCU-CHEK COMFORT CURVE STRIP VI SCH ×3 (05:30→17:30)
[2021-10-26] MEDS: guaiFENesin-DM 100/10mg/5ml SYR PO PRN (05:31)
[2021-10-26] MEDS: metFORMIN HYDROCHLORIDE 850 MG TAB PO SCH ×2 (08:00→17:57)
[2021-10-26 08:59] VITALS: BP 143/93
[2021-10-26] MEDS: levETIRAcetam 500 MG TAB PO SCH (10:00)
[2021-10-26] MEDS: SULFAMETHOX W/TRIMETH(800/160MG) DS TAB PO SCH (10:00)
[2021-10-26] MEDS: LISINOPRIL 20 MG TAB PO SCH (10:00)
[2021-10-26 13:00] VITALS: BP_SYST 129; BP_SYST 145; BP_DIAS 69; BP_DIAS 80
[2021-10-26] MEDS ORDERED: COROSUS RIGHT EAR (16:11)
[2021-10-26 17:00] VITALS: BP 147/94
[2021-10-26] MEDS: NEOMYCIN-POLYM-HC 1% OTIC(EAR) SOLN 10ML RIGHT EAR SCH ×2 (17:29→18:30)
[2021-10-26] MEDS ORDERED: NEOMYCIN-POLYM-HC 1% OTIC(EAR) SOLN 10ML RIGHT EAR SCH (18:00)
== END 2021-10-26 20:38 | DRG 871 ==
LOC: ER 19:20 → TELE 10-17 10:40 → WEST WING 10-17 22:35
PROVIDERS: ADMIT Internal Medicine; ATTEND Internal Medicine
PROC: 5A09357 Assistance with Respiratory Ventilation, Less than 24 Consecutive Hours, Continuous Positive Airway Pressure (ICD-10-PCS; principal; 2021-10-24)
DX: A40.3 Sepsis due to Streptococcus pneumoniae (principal); G92.8 Other toxic encephalopathy; G40.209 Localization-related (focal) (partial) symptomatic epilepsy and epileptic syndromes with complex partial seizures, not intractable, without status epilepticus; N39.0 Urinary tract infection, site not specified; I10 Essential (primary) hypertension; N20.0 Calculus of kidney; Z20.822 Contact with and (suspected) exposure to COVID-19; E11.65 Type 2 diabetes mellitus with hyperglycemia; E66.01 Morbid (severe) obesity due to excess calories; E78.5 Hyperlipidemia, unspecified; G40.409 Other generalized epilepsy and epileptic syndromes, not intractable, without status epilepticus; G47.00 Insomnia, unspecified; G47.10 Hypersomnia, unspecified; J45.909 Unspecified asthma, uncomplicated; Z79.899 Other long term (current) drug therapy; Z87.442 Personal history of urinary calculi; Z79.84 Long term (current) use of oral hypoglycemic drugs; Z68.27 Body mass index [BMI] 27.0-27.9, adult
CPT/HCPCS: 36415; 70450; 70496; 70498; 70551; 71045; 72125; 72131; 72141; 72148; 76775; 80048; 80053; 80202; 80307; 80320; 81001; 82542; 82550; 82565; 82962; 83036; 83605; 84484; 85007; 85025; 85027; 85610; 85730; 87040; 87077; 87186; 93005; 93306; 94660; 96361; 96374; 96375; 97110; 97116; 97163; 97530; 99291; G0378; J0131; J0696; J1815; J2001; J2405; J2543; J3490; J7060